=== PATIENT | male | born 1965 | race Caucasian/White ===

== ENCOUNTER → 2017-11-12 | Outpatient (CLI) | payer OTHER ==
--- NOTE | 2017-11-12 17:37 | DIAGNOSTIC IMAGING REPORT ---
MRI OF THE CERVICAL SPINE WITHOUT IV CONTRAST CLINICAL HISTORY: Gait abnormality. Neck pain. History of previous cervical fusion. COMPARISON STUDY: No priors. TECHNIQUE: MRI of the cervical spine is performed utilizing various T1 and T2-weighted sequences in the axial and sagittal planes. IV contrast was not administered for this examination. FINDINGS: Cervical spine: Vertebral body height and alignment are maintained throughout the cervical spine. Marrow signal intensity is heterogeneous. There is straightening of cervical lordosis. There is near-complete bony fusion of C4 and C5. The spinous processes appear intact. The atlantodental articulation appears maintained. Significant endplate edema is seen at C5-C6. Intervertebral discs: There is loss of the C4-C5 disc space secondary to fusion at this level. Disc desiccation is seen at the remaining cervical levels. Loss of height is moderate at C3-C4, C5-C6, and C6-C7. Spinal cord: There is extensive signal abnormality identified throughout the cervical cord. There is a 1.5 cm T2 hyperintense lesion identified at C2-C3 on sagittal image #8. A lesion at the C2 level on image #9 measures 1.3 cm. There is extensive signal abnormality seen from C3 to C5, seen on sagittal image #9. This measures at least 2.7 cm in length. Additional foci of abnormal signal are identified in the lower cervical and upper thoracic cord. There is thinning of the cervical cord at the C5-C6 level. C2-C3: Unremarkable. C3-C4: A posterior disc osteophyte complex abuts the ventral cord. This causes moderate to severe right and mild left neural foraminal stenosis. C4-C5: Unremarkable. C5-C6: A posterior disc osteophyte complex eccentric to the left minimally effaces the ventral cord. In conjunction with uncovertebral and facet arthropathy, this causes severe left and moderate to severe right neural foraminal stenosis. C6-C7: A tiny posterior disc osteophyte complex effaces the ventral subarachnoid space. Uncovertebral and facet arthropathy causes moderate to severe left and minimal right neural foraminal stenosis. C7-T1: Facet arthropathy is of no consequence. The central canal and neural foramina are widely patent. Soft tissues: The prevertebral and paraspinous soft tissues are within normal limits. Brain parenchyma: Partially imaged brain parenchyma at the skull base is normal as visualized. IMPRESSION: 1. There is extensive signal abnormality seen throughout the cervical cord and partially visualized in the upper thoracic cord. Although not definitive, the appearance and extent of the lesions suggest a demyelinating process such as multiple sclerosis. Other etiologies are considered less likely. Correlation with the patient's clinical findings, medical history, and any prior outside imaging studies will be essential. 2. There are postoperative changes from C4 to C5 spinal fusion. 3. Diffuse degenerative disc disease with significant endplate edema noted at C5-C6. 4. Multilevel cervical spondylosis as above. See discussion for level by level analysis. Dictated: 11/12/2017 5:08 PM Transcribed: 11/12/2017 5:37 PM [email or web address] Electronically signed by: Rudy Clayton M.D. 11/12/2017 5:43 PM Dictated Date/Time: 11/12/2017 5:08 PM
== END | disposition home or self-care (01) ==
LOC: C.MRIBC 15:22
PROVIDERS: ATTEND Orthopaedic Surgery Orthopaedic Surgery of the Spine
DX: R26.9 Unspecified abnormalities of gait and mobility (principal); M47.892 Other spondylosis, cervical region; M50.322 Other cervical disc degeneration at C5-C6 level

== ENCOUNTER 2020-07-01 13:31 | Observation (INO) ==
[2020-07-01] MEDS ORDERED: cefTRIAXone SODIUM 2,000 MG/70 ML BAG IV STA (14:15)
[2020-07-01] MEDS ORDERED: KETOROLAC TROMETHAMINE 15 MG/ML VIAL IV STA (14:18)
[2020-07-01] MEDS ORDERED: ACETAMINOPHEN 500 MG TAB PO STA (14:18)
--- NOTE | 2020-07-01 14:23 | Emergency Department Note ---
Impression & Plan Fever, Body aches, Headache, Acute urinary retention, Multiple sclerosis, Tick bite ED Provider Note NAME: LUIS SKINNER AGE: 54 SEX: M : 1965 ARRIVES VIA: Walk-In INFORMANT: [Patient] ED PROVIDER(S): [Rudy Toney MD] CHIEF COMPLAINT: Fever HISTORY OF PRESENT ILLNESS: The patient is a 54-year-old male who has had around 2 to 3 days of symptoms. He has body aches, chills, hot flashes, stiff joints, some nausea. He feels weak. His urine stream is weak. Patient has had no appetite. He has had a low-grade fever. He has a headache that is a 7/10. Patient states that he did pull 2-3 ticks off of his back last week. He has had Lyme disease before and is concerned he has it again. Patient does have MS, he states that he is weak typically with the MS but things have definitely worsened in the last 2 days. There has been no cough or congestion really. He has maybe had some slight nasal mucus production. He has not been short of breath. The patient denies any known coronavirus exposures. There have been no sick contacts at home. The patient has not noticed any rash. No diarrhea. No vomiting. REVIEW OF SYSTEMS: See HPI for pertinent positives and negatives. A total of ten systems were reviewed and were otherwise negative. PMHx/PSHx: See Below SOCIAL HISTORY: See Below. PHYSICAL EXAM: GENERAL: Patient is in no acute distress. HEENT: No acute trauma, normocephalic atraumatic, mucous membranes moist, no nasal congestion, no scleral icterus. No throat erythema or exudate. NECK: No stridor, no adenopathy, no meningismus, trachea is midline. LUNGS: Clear to auscultation bilaterally, no wheeze, no rhonchi, breath sounds equal. HEART: Without murmurs gallops or rubs, mildly tachycardic, regular rhythm. ABDOMEN: Soft, nontender, bowel sounds positive, no hernias, no peritonitis. EXTREMITIES: No cyanosis or edema, full range of motion of all the joints without pain or difficulty, no signs for acute trauma. NEUROLOGIC: Oriented x 3, no acute motor or sensory deficits, no focal weakness. SKIN: No rash, no jaundice, no diaphoresis. Back: The patient does have some healing lesions to the left thoracic back that may be consistent with a previously embedded tick. There is no ECM rash. DIFFERENTIAL DIAGNOSIS: Sepsis, UTI, pneumonia, metabolic, electrolyte abnormalities, influenza, asael navirus, Lyme disease, cardiac sources, intracerebral event, MS flare, toxicologic, neurologic, as well as other pathologies. EMERGENCY DEPARTMENT COURSE/PROCEDURES: ECG: Indication was tachycardia. The ECG shows a normal sinus rhythm with a rate of 87. There is no ST elevation, no PVCs. The QTc is 394. Continuous Cardiac Monitoring: An order was placed for continuous cardiac monitoring. The monitor shows a rate of 75 with normal sinus rhythm. MEDICAL DECISION MAKING: There is no leukocytosis, in fact, the white count is slightly low. There is a normal hemoglobin. There is a normal platelet count. No coagulopathy. No significant electrolyte abnormality or kidney failure. Lactic acid level is not elevated making sepsis less likely. There is no liver enzyme elevation. Procalcitonin level is not elevated. Urinalysis shows some ketones, no infection. Lyme disease testing was negative. Influenza testing was negative. Coronavirus testing was negative. Anaplasmosis testing is pending. ECG showed a sinus rhythm, no acute ischemia, no dysrhythmia. Cardiac enzyme testing x1 is not consistent with acute cardiac injury. A chest film was done, there was no pneumonia or CHF. KUB shows some mild constipation. The patient was unable to urinate here in the ED. He felt like he had to urinate. A Saul catheter was placed, over 600 cc of urine drained. Patient was given 2 L of saline for hydration. He received IV Toradol and oral Tylenol. He was given IV ceftriaxone and oral doxycycline. He was eventually given 2 Senokot tablets orally. The patient is having an MS flare. He is febrile. The source for the fever is unclear but I am suspicious for Lyme disease or anaplasmosis given his recent tick bites. I do think a hospital stay would be warranted especially given his history of MS. His MS is flaring and may be responsible for why he cannot urinate. Prostatitis also must be considered. I spoke to the patient, I talked with case management. The on-call hospitalist has been consulted. 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 History of cervical discectomy Family History Denies family history of Ovarian cancer Prostate cancer Myocardial infarction Breast cancer Colorectal cancer Social History Smoking Status: Former smoker Hx Alcohol Use: Yes Hx Substance Use: No Preferred Language: Kinyarwanda Beliefs That Will Affect Care: None Current Living Situation: Alone Feels Safe at Home: Yes Assistive Devices: Cane Allergies Allergies Allergy/AdvReac Type Severity Reaction Status Date / Time No Known Allergies Allergy Unverified 06/17/19 09:35 Home Meds Home Medications Medication Instructions Recorded Confirmed gabapentin 300 mg capsule 300 mg PO TID #30 cap 06/16/19 07/01/20 meloxicam 15 mg PO DAILY 07/01/20 07/01/20 tizanidine 2 mg PO QPM 07/01/20 07/01/20 Results & Data (ED) Vital Signs Vital Signs - 24 hr 07/01/20 13:39 07/01/20 14:16 07/01/20 14:45 Temperature 38.5 C H Temperature Source Oral Pulse Rate 118 H 118 H Pulse Rate [Left] Pulse Rate from SpO2 Sensor Pulse Rhythm Regular Regular Pulse Strength Normal Respiratory Rate 20 20 20 Respiratory Effort / Characteristics Non-Labored Spontaneous Non-Labored Spontaneous Respiratory Depth Normal Respiratory Pattern Regular Blood Pressure 111/77 Blood Pressure [Right Arm] Blood Pressure Mean 88 Blood Pressure Mean [Right Arm] Blood Pressure Position [Right Arm] Pulse Oximetry 97 97 97 Oxygen Delivery Method Room Air Room Air Room Air Sepsis Recent Fever Within 48 Hours Yes Sepsis New/Unexplained Change in Mental Status N/A Sepsis Action Taken by Nursing No Action Required 07/01/20 14:46 07/01/20 15:16 07/01/20 15:29 Temperature Temperature Source Pulse Rate 90 Pulse Rate [Left] Pulse Rate from SpO2 Sensor 88 Pulse Rhythm Pulse Strength Respiratory Rate 20 20 15 Respiratory Effort / Characteristics Non-Labored Spontaneous Non-Labored Spontaneous Respiratory Depth Respiratory Pattern Blood Pressure 124/79 Blood Pressure [Right Arm] Blood Pressure Mean 85 Blood Pressure Mean [Right Arm] Blood Pressure Position [Right Arm] Pulse Oximetry 97 97 96 Oxygen Delivery Method Room Air Room Air Sepsis Recent Fever Within 48 Hours Sepsis New/Unexplained Change in Mental Status Sepsis Action Taken by Nursing 07/01/20 15:30 07/01/20 15:45 07/01/20 16:00 Temperature Temperature Source Pulse Rate 89 88 82 Pulse Rate [Left] Pulse Rate from SpO2 Sensor 87 87 81 Pulse Rhythm Pulse Strength Respiratory Rate 16 17 15 Respiratory Effort / Characteristics Non-Labored Spontaneous Respiratory Depth Respiratory Pattern Blood Pressure 148/91 H 162/126 H 139/91 Blood Pressure [Right Arm] Blood Pressure Mean 101 136 108 Blood Pressure Mean [Right Arm] Blood Pressure Position [Right Arm] Pulse Oximetry 98 97 97 Oxygen Delivery Method Room Air Sepsis Recent Fever Within 48 Hours Sepsis New/Unexplained Change in Mental Status Sepsis Action Taken by Nursing 07/01/20 16:15 07/01/20 16:30 07/01/20 17:39 Temperature Temperature Source Pulse Rate 77 81 75 Pulse Rate [Left] Pulse Rate from SpO2 Sensor 77 82 76 Pulse Rhythm Pulse Strength Respiratory Rate 13 15 16 Respiratory Effort / Characteristics Respiratory Depth Respiratory Pattern Blood Pressure 123/78 122/79 132/85 Blood Pressure [Right Arm] Blood Pressure Mean 89 86 90 Blood Pressure Mean [Right Arm] Blood Pressure Position [Right Arm] Pulse Oximetry 97 96 96 Oxygen Delivery Method Sepsis Recent Fever Within 48 Hours Sepsis New/Unexplained Change in Mental Status Sepsis Action Taken by Nursing 07/01/20 17:45 07/01/20 18:00 Temperature Temperature Source Pulse Rate Pulse Rate [Left] 75 Pulse Rate from SpO2 Sensor Pulse Rhythm Pulse Strength Respiratory Rate 16 16 Respiratory Effort / Characteristics Non-Labored Spontaneous Non-Labored Spontaneous Respiratory Depth Normal Respiratory Pattern Blood Pressure 123/90 Blood Pressure [Right Arm] 123/90 Blood Pressure Mean 103 Blood Pressure Mean [Right Arm] 101 Blood Pressure Position [Right Arm] Lying Pulse Oximetry 97 97 Oxygen Delivery Method Room Air Room Air Sepsis Recent Fever Within 48 Hours Sepsis New/Unexplained Change in Mental Status Sepsis Action Taken by Group Home Medications Current Medication List: was personally reviewed by me Laboratory Data Attestation: I reviewed the patient's lab results. Result diagrams: 07/01/20 15:10 07/01/20 15:10 Lab Results 07/01/20 07/01/20 07/01/20 Range/Units 15:10 15:10 15:10 WBC 4.74 L (4.8-10.8) K/uL RBC 4.93 (4.7-6.1) M/uL Hgb 16.3 (14.0-18.0) g/dL Hct 45.9 (42-52) % MCV 93.1 (80-100) fL MCH 33.1 (25-34) pg MCHC 35.5 (32-36) g/dL RDW Std Deviation 44.7 (36.4-46.3) fL RDW Coeff of Dee 13.1 (11.5-14.5) % Plt Count 170 (130-400) K/uL MPV 9.7 (7.4-10.4) fL Immature Gran % (Auto) 0.2 % Neut % (Auto) 80.7 % Lymph % (Auto) 14.3 % Irwin % (Auto) 4.6 % Eos % (Auto) 0.0 % Baso % (Auto) 0.2 % Neut # (Auto) 3.82 (1.4-6.5) K/uL Lymph # (Auto) 0.68 L (1.2-3.4) K/uL Irwin # (Auto) 0.22 (0.11-0.59) K/uL Eos # (Auto) 0.00 (0-0.5) K/uL Baso # (Auto) 0.01 (0-0.2) K/uL Immature Gran # (Auto) 0.01 (0.00-0.02) K/uL PT 10.8 (9.0-12.0) Seconds INR 1.0 (0.9-1.1) APTT 40.3 H (21.0-31.0) Seconds PTT Ratio 1.4 Sodium (136-145) mmol/L Potassium (3.5-5.1) mmol/L Chloride (98-107) mmol/L Carbon Dioxide (21-32) mmol/L Anion Gap (3-11) BUN (7-18) mg/dl Creatinine (0.6-1.4) mg/dl Est Cr Clr Drug Dosing ml/min Est GFR ( Amer) Est GFR (Non-Af Amer) BUN/Creatinine Ratio (10-20) Glucose (70-99) mg/dl Lactate (0.4-2.0) mmol/L Calcium (8.5-10.1) mg/dl Magnesium (1.8-2.4) mg/dl Total Bilirubin (0.2-1) mg/dl AST (15-37) U/L ALT (12-78) U/L Alkaline Phosphatase (45-117) U/L Troponin I (0-0.045) ng/ml Total Protein (6.4-8.2) gm/dl Albumin (3.4-5.0) gm/dl Globulin (2.5-4.0) gm/dl Albumin/Globulin Ratio (0.9-2) Procalcitonin 0.46 (0-0.5) ng/ml Urine Color Urine Appearance (Clear) Urine pH (4.5-7.5) Ur Specific Kirby (1.000-1.030) Urine Protein (Negative) Urine Glucose (UA) (Negative) Urine Ketones (Negative) Urine Blood (Negative) Urine Nitrite (Negative) Urine Bilirubin (Negative) Urine Urobilinogen (Negative) Ur Leukocyte Esterase (Negative) Urine WBC (Auto) (0-5) /hpf Urine RBC (Auto) (0-4) /hpf U Hyaline Cast (Auto) (0-5) /lpf U Epithel Cells (Auto) (0-5) /lpf Urine Bacteria (Auto) (Negative) Lyme Disease IgG Ab Negative (Negative) Lyme Disease IgM Ab Negative (Negative) COVID-19 Eval Order COVID-19 PCR (Negative) Influ A Molecular Assay (Negative) Influ B Molecular Assay (Negative) 07/01/20 07/01/20 07/01/20 Range/Units 15:10 15:10 15:12 WBC (4.8-10.8) K/uL RBC (4.7-6.1) M/uL Hgb (14.0-18.0) g/dL Hct (42-52) % MCV (80-100) fL MCH (25-34) pg MCHC (32-36) g/dL RDW Std Deviation (36.4-46.3) fL RDW Coeff of Dee (11.5-14.5) % Plt Count (130-400) K/uL MPV (7.4-10.4) fL Immature Gran % (Auto) % Neut % (Auto) % Lymph % (Auto) % Irwin % (Auto) % Eos % (Auto) % Baso % (Auto) % Neut # (Auto) (1.4-6.5) K/uL Lymph # (Auto) (1.2-3.4) K/uL Irwin # (Auto) (0.11-0.59) K/uL Eos # (Auto) (0-0.5) K/uL Baso # (Auto) (0-0.2) K/uL Immature Gran # (Auto) (0.00-0.02) K/uL PT (9.0-12.0) Seconds INR (0.9-1.1) APTT (21.0-31.0) Seconds PTT Ratio Sodium 134 L (136-145) mmol/L Potassium 3.9 (3.5-5.1) mmol/L Chloride 102 (98-107) mmol/L Carbon Dioxide 24 (21-32) mmol/L Anion Gap 8.0 (3-11) BUN 16 (7-18) mg/dl Creatinine 0.97 (0.6-1.4) mg/dl Est Cr Clr Drug Dosing 98.0 ml/min Est GFR ( Amer) 102.9 Est GFR (Non-Af Amer) 88.8 BUN/Creatinine Ratio 16.7 (10-20) Glucose 102 H (70-99) mg/dl Lactate 1.0 (0.4-2.0) mmol/L Calcium 8.7 (8.5-10.1) mg/dl Magnesium 2.0 (1.8-2.4) mg/dl Total Bilirubin 0.3 (0.2-1) mg/dl AST 35 (15-37) U/L ALT 42 (12-78) U/L Alkaline Phosphatase 79 (45-117) U/L Troponin I < 0.015 (0-0.045) ng/ml Total Protein 7.9 (6.4-8.2) gm/dl Albumin 3.8 (3.4-5.0) gm/dl Globulin 4.1 H (2.5-4.0) gm/dl Albumin/Globulin Ratio 0.9 (0.9-2) Procalcitonin (0-0.5) ng/ml Urine Color Urine Appearance (Clear) Urine pH (4.5-7.5) Ur Specific Kirby (1.000-1.030) Urine Protein (Negative) Urine Glucose (UA) (Negative) Urine Ketones (Negative) Urine Blood (Negative) Urine Nitrite (Negative) Urine Bilirubin (Negative) Urine Urobilinogen (Negative) Ur Leukocyte Esterase (Negative) Urine WBC (Auto) (0-5) /hpf Urine RBC (Auto) (0-4) /hpf U Hyaline Cast (Auto) (0-5) /lpf U Epithel Cells (Auto) (0-5) /lpf Urine Bacteria (Auto) (Negative) Lyme Disease IgG Ab (Negative) Lyme Disease IgM Ab (Negative) COVID-19 Eval Order COVID-19 PCR (Negative) Influ A Molecular Assay Negative (Negative) Influ B Molecular Assay Negative (Negative) 07/01/20 07/01/20 07/01/20 Range/Units 15:12 15:12 17:40 WBC (4.8-10.8) K/uL RBC (4.7-6.1) M/uL Hgb (14.0-18.0) g/dL Hct (42-52) % MCV (80-100) fL MCH (25-34) pg MCHC (32-36) g/dL RDW Std Deviation (36.4-46.3) fL RDW Coeff of Dee (11.5-14.5) % Plt Count (130-400) K/uL MPV (7.4-10.4) fL Immature Gran % (Auto) % Neut % (Auto) % Lymph % (Auto) % Irwin % (Auto) % Eos % (Auto) % Baso % (Auto) % Neut # (Auto) (1.4-6.5) K/uL Lymph # (Auto) (1.2-3.4) K/uL Irwin # (Auto) (0.11-0.59) K/uL Eos # (Auto) (0-0.5) K/uL Baso # (Auto) (0-0.2) K/uL Immature Gran # (Auto) (0.00-0.02) K/uL PT (9.0-12.0) Seconds INR (0.9-1.1) APTT (21.0-31.0) Seconds PTT Ratio Sodium (136-145) mmol/L Potassium (3.5-5.1) mmol/L Chloride (98-107) mmol/L Carbon Dioxide (21-32) mmol/L Anion Gap (3-11) BUN (7-18) mg/dl Creatinine (0.6-1.4) mg/dl Est Cr Clr Drug Dosing ml/min Est GFR ( Amer) Est GFR (Non-Af Amer) BUN/Creatinine Ratio (10-20) Glucose (70-99) mg/dl Lactate (0.4-2.0) mmol/L Calcium (8.5-10.1) mg/dl Magnesium (1.8-2.4) mg/dl Total Bilirubin (0.2-1) mg/dl AST (15-37) U/L ALT (12-78) U/L Alkaline Phosphatase (45-117) U/L Troponin I (0-0.045) ng/ml Total Protein (6.4-8.2) gm/dl Albumin (3.4-5.0) gm/dl Globulin (2.5-4.0) gm/dl Albumin/Globulin Ratio (0.9-2) Procalcitonin (0-0.5) ng/ml Urine Color Yellow Urine Appearance Clear (Clear) Urine pH 5.5 (4.5-7.5) Ur Specific Kirby 1.023 (1.000-1.030) Urine Protein 1+ H (Negative) Urine Glucose (UA) Negative (Negative) Urine Ketones 2+ H (Negative) Urine Blood Negative (Negative) Urine Nitrite Negative (Negative) Urine Bilirubin Negative (Negative) Urine Urobilinogen Negative (Negative) Ur Leukocyte Esterase Negative (Negative) Urine WBC (Auto) 1-5 (0-5) /hpf Urine RBC (Auto) 0-4 (0-4) /hpf U Hyaline Cast (Auto) 1-5 (0-5) /lpf U Epithel Cells (Auto) 0-5 (0-5) /lpf Urine Bacteria (Auto) Negative (Negative) Lyme Disease IgG Ab (Negative) Lyme Disease IgM Ab (Negative) COVID-19 Eval Order Covid19 Done at [facility] COVID-19 PCR NEGATIVE (Negative) Influ A Molecular Assay (Negative) Influ B Molecular Assay (Negative) Administered Medications Discontinued Medications Acetaminophen (Acetaminophen 500 Mg Tab) 1,000 mg PO NOW STA Stop: 07/01/20 14:19 Last Admin: 07/01/20 15:21 Dose: 1,000 mg Documented by: [id number] Doxycycline Hyclate (Doxycycline Hyclate 100 Mg Cap) 100 mg PO NOW STA Stop: 07/01/20 15:52 Last Admin: 07/01/20 18:44 Dose: 100 mg Documented by: [id number] Doxycycline Hyclate (Doxycycline Hyclate 100 Mg Cap) Confirm Administered Dose 100 mg PO .STK-MED ONE Stop: 07/01/20 18:43 Last Admin: 07/01/20 18:44 Dose: Not Given Documented by: [id number] Sodium Chloride (Nss 1000ml) 1,000 mls @ 999 mls/hr IV .Q1H1M THUY Stop: 07/01/20 16:15 Last Infusion: 07/01/20 16:38 Dose: 0 mls/hr Documented by: [id number] Admin: 07/01/20 15:20 Dose: 999 mls/hr Documented by: [id number] Sodium Chloride (Nss 1000ml) 1,000 mls @ 999 mls/hr IV .Q1H1M THUY Stop: 07/01/20 15:16 Last Infusion: 07/01/20 16:38 Dose: 0 mls/hr Documented by: [id number] Admin: 07/01/20 15:21 Dose: Not Given Documented by: [id number] Admin: 07/01/20 15:20 Dose: 999 mls/hr Documented by: [id number] Ceftriaxone Sodium (Rocephin) 2,000 mg in 70 mls @ 140 mls/hr IV NOW STA Stop: 07/01/20 14:44 Last Infusion: 07/01/20 16:38 Dose: 0 mls/hr Documented by: [id number] Admin: 07/01/20 15:26 Dose: 140 mls/hr Documented by: [id number] Ketorolac Tromethamine (Ketorolac Tromethamine 15 Mg/Ml Vial) 15 mg IV NOW STA Stop: 07/01/20 14:19 Last Admin: 07/01/20 15:21 Dose: 15 mg Documented by: [id number] Imaging Data Radiologist's Impression: XR chest 1V portable HISTORY: 54 years-old Male SEPSIS acute sepsis COMPARISON: Chest CT 01/28/2019 TECHNIQUE: Portable AP view of the chest FINDINGS: Cardiomediastinal and hilar silhouettes are within normal limits. No pneumothorax, pleural effusion, airspace consolidation or overt pulmonary edema. Mild emphysema redemonstrated. Bones of the chest appear grossly intact. IMPRESSION: No acute process. KUB HISTORY: Acute generalized abdominal pain with constipation poss constipation COMPARISON: None. FINDINGS: Gas pattern is nonobstructive. Mild fecal retention. Shadows are obscured by bowel gas. No urolith identified. No pneumoperitoneum or pneumatosis. Degenerative changes of the spine without acute fracture identified. IMPRESSION: 1. Nonobstructive bowel gas pattern. 2. Mild fecal retention. Discharge Plan Visit Data Chief Complaint: Illness Stated Complaint: STIFF BACK,LEG,HX MS ED Provider: Rudy Toney Discharge Problem: Fever, Body aches, Headache, Acute urinary retention, Multiple sclerosis, Tick bite Patient Disposition: Admitted As Inpatient Condition: Fair Forms Stand Alone Forms: [facility] Prescriptions Prescriptions: No Action gabapentin 300 mg capsule 300 mg PO TID Qty: 30 RF: 0 tizanidine 2 mg tablet 2 mg PO QPM RF: 0 meloxicam 15 mg tablet 15 mg PO DAILY RF: 0 Referrals Referrals: Deepak Vargas MD [Primary Care Provider] - Discharge Problem: Fever Qualifiers: Fever type: unspecified Qualified Code(s): R50.9 - Fever, unspecified Headache Qualifiers: Headache type: unspecified Headache chronicity pattern: acute headache Intractability: not intractable Qualified Code(s): R51.9 - Headache, unspecified Tick bite Qualifiers: Encounter type: initial encounter Qualified Code(s): W57.XXXA - Bitten or stung by nonvenomous insect and other nonvenomous arthropods, initial encounter
--- NOTE | 2020-07-01 14:44 | XRay Report ---
XR chest 1V portable HISTORY: 54 years-old Male SEPSIS acute sepsis COMPARISON: Chest CT 01/28/2019 TECHNIQUE: Portable AP view of the chest FINDINGS: Cardiomediastinal and hilar silhouettes are within normal limits. No pneumothorax, pleural effusion, airspace consolidation or overt pulmonary edema. Mild emphysema redemonstrated. Bones of the chest ap pear grossly intact. IMPRESSION: No acute process. ACT 112: Negative or not required by law. The above report was generated using voice recognition software. It may contain grammatical, syntax o r spelling errors. Electronically signed by: Flaquito Brock M.D. 07/01/2020 2:43 PM
[2020-07-01] MEDS ORDERED: SODIUM CHLORIDE 0.9% 1000ML 1,000 ML IV SCH (15:16)
[2020-07-01] MEDS: SODIUM CHLORIDE 0.9% 1000ML 1,000 ML IV SCH ×2 (15:20→15:21)
[2020-07-01 15:27] LABS: Basophils # (auto) 0.01 K/uL (0-0.2); Basophils % (auto) 0.2 %; Hematocrit (blood only) 45.9 % (42-52); Hemoglobin 16.3 g/dL (14.0-18.0); Immature Granulocytes # (auto) 0.01 K/uL (0.00-0.02); Immature Granulocytes % (auto) 0.2 %; Lymphocytes # (auto) 0.68 K/uL (1.2-3.4); Lymphocytes % (auto) 14.3 %; Mean Corpuscular Hemoglobin 33.1 pg (25-34); Mean Corpuscular Hgb Conc 35.5 g/dL (32-36); Mean Corpuscular Volume 93.1 fL (80-100); Mean Platelet Volume 9.7 fL (7.4-10.4); Monocytes # (auto) 0.22 K/uL (0.11-0.59); Monocytes % (auto) 4.6 %; Neutrophils # (auto) 3.82 K/uL (1.4-6.5); Neutrophils % (auto) 80.7 %; Platelet Count 170 K/uL (130-400); RDW Coefficient of Variation 13.1 % (11.5-14.5); RDW Standard Deviation 44.7 fL (36.4-46.3); Red Blood Count 4.93 M/uL (4.7-6.1); White Blood Count 4.74 K/uL (4.8-10.8)
[2020-07-01 15:38] LABS: Partial Thromboplastin Ratio 1.4; Partial Thromboplastin Time 40.3 Seconds (21.0-31.0); Prothrombin Time 10.8 Seconds (9.0-12.0)
[2020-07-01 15:45] LABS: Alanine Aminotransferase 42 U/L (12-78); Albumin Level 3.8 gm/dl (3.4-5.0); Aspartate Aminotransferase 35 U/L (15-37); BUN Creatinine Ratio 16.7 (10-20); Blood Urea Nitrogen 16 mg/dl (7-18); Calcium 8.7 mg/dl (8.5-10.1); Carbon Dioxide 24 mmol/L (21-32); Chloride 102 mmol/L (98-107); Est GFR (African American) 102.9; Est GFR (Non-African American) 88.8; Glucose 102 mg/dl (70-99); Potassium 3.9 mmol/L (3.5-5.1); Sodium 134 mmol/L (136-145)
[2020-07-01 15:49] LABS: Albumin Globulin Ratio 0.9 (0.9-2); Alkaline Phosphatase 79 U/L (45-117); Bilirubin,Total 0.3 mg/dl (0.2-1); Globulin 4.1 gm/dl (2.5-4.0); Total Protein 7.9 gm/dl (6.4-8.2); Troponin I < 0.015 ng/ml (0-0.045)
[2020-07-01] MEDS ORDERED: DOXYCYCLINE HYCLATE 100 MG CAP PO STA (15:51)
[2020-07-01 16:02] LABS: Influenza A virus by PCR Negative (Negative); Influenza B virus by PCR Negative (Negative)
[2020-07-01 16:14] LABS: Procalcitonin 0.46 ng/ml (0-0.5)
[2020-07-01 16:24] LABS: Lyme Ab IgG w/WB Rflx Negative (Negative); Lyme Ab IgM w/WB Rflx Negative (Negative)
[2020-07-01 17:59] LABS: Appearance Urine Clear (Clear); Bacteria Urine Automated Negative (Negative); Bilirubin Urine Negative (Negative); Blood Urine Negative (Negative); Color Urine Yellow; Epithelial Cell Urine Auto 0-5 /lpf (0-5); Glucose Urine UA Negative (Negative); Ketones Urine 2+ (Negative); Leukocyte Esterase Urine Negative (Negative); Nitrite Urine Negative (Negative); Protein Urine 1+ (Negative); RBC Urine Automated 0-4 /hpf (0-4); Specific Gravity Urine 1.023 (1.000-1.030); Urobilinogen Urine Negative (Negative); pH Urine 5.5 (4.5-7.5)
--- NOTE | 2020-07-01 18:35 | XRay Report ---
KUB HISTORY: Acute generalized abdominal pain with constipation poss constipation COMPARISON: None. FINDINGS: Gas pattern is nonobstructive. Mild fecal retention. Shadows are obscured by bowel gas. No urolith identified. No pneumoperitoneum or pneumatosis. Degener ative changes of the spine without acute fracture identified. IMPRESSION: 1. Nonobstructive bowel gas pattern. 2. Mild fecal retention. ACT 112: Negative or not required by law. The above report was generated using voice recognition software. It may contain grammatical, syntax o r spelling errors. Electronically signed by: Flaquito Brock M.D. 07/01/2020 6:34 PM
[2020-07-01] MEDS ORDERED: DOXYCYCLINE HYCLATE 100 MG CAP PO ONE (18:42)
[2020-07-01] MEDS ORDERED: DOCUSATE SODIUM/SENNA 50/8.6MG TAB PO STA (18:49)
[2020-07-01] MEDS ORDERED: ACETAMINOPHEN 325 MG TAB PO PRN (21:42)
[2020-07-01] MEDS ORDERED: POLYETHYLENE (MIRALAX) 17 GM PACK PO PRN (21:42)
[2020-07-01] MEDS ORDERED: ONDANSETRON INJ 2 MG/ML 2 ML VIAL IV PRN (21:42)
[2020-07-01 21:56] LABS: Adenovirus PCR Not Detected (NotDetected); Bordetella parapertussis PCR Not Detected (NotDetected); Bordetella pertussis PCR Not Detected (NotDetected); Chlamydia pneumoniae PCR Not Detected (NotDetected); Coronavirus 229E PCR Not Detected (NotDetected); Coronavirus CoV-2 (COVID19)PCR Not Detected (NotDetected); Coronavirus HKU1 PCR Not Detected (NotDetected); Coronavirus NL63 PCR Not Detected (NotDetected); Coronavirus OC43PCR Not Detected (NotDetected); Human Metapneumovirus PCR Not Detected (NotDetected); Influenza A PCR Not Detected (NotDetected); Influenza B PCR Not Detected (NotDetected); Mycoplasma pneumoniae PCR Not Detected (NotDetected); Parainfluenza Virus 1 PCR Not Detected (NotDetected); Parainfluenza Virus 2 PCR Not Detected (NotDetected); Parainfluenza Virus 3 PCR Not Detected (NotDetected); Parainfluenza Virus 4 PCR Not Detected (NotDetected); Respiratory Syncytial VirusPCR Not Detected (NotDetected); Rhinovirus/Enterovirus PCR Not Detected (NotDetected)
[2020-07-01] MEDS ORDERED: INFLUENZA VIRUS QUAD VACCINE 0.5 ML SYR IM ONE (22:38)
[2020-07-01] MEDS ORDERED: INFLUENZA ADMINISTRATION CHARGE ONE (22:38)
[2020-07-01] MEDS: methylPREDNISolone 1,000 MG in DEXTROSE 5% 250 ML IV SCH (22:44)
[2020-07-01] MEDS: GABAPENTIN 300 MG CAP PO SCH (22:44)
[2020-07-01] MEDS: tiZANidine HCL 4 MG TABLET PO SCH (22:44)
--- NOTE | 2020-07-02 00:40 | History and Physical Report ---
DATE OF ADMISSION: 07/01/2020 CHIEF COMPLAINT: Flu-like illness and stiffness in the lower extremities. HISTORY OF PRESENT ILLNESS: This is a 54-year-old male with past medical history significant for atrophic dermatitis, history of primary progressive multiple sclerosis, spinal stenosis of lumbar region, presents with ongoing flu-like symptoms for the last 3 days. The patient says he was feeling body aches, chills and hot flashes and cold flashes, some nausea, some headache for last 2-3 days and has low-grade fever, last night, he noticed that he has stiffness in his legs and have some difficulty ambulation and also difficulty micturating, he could not micturate at all today for which he came to the ER. In the ER, Saul catheter was placed, 600 mL of urine was drained. Patient also says about 1 week ago, he had a 2-3 tick bites in his back, which he took it off. He thinks they were there for 1 or 2 days. He lives in the [facility] and he says he had tick bites in the past. Currently he has temperature 38.5. In the ER, WBC was 4.7. Rest of labs are okay. Urine was negative. Lyme screen was negative. Anaplasma smear was negative. Influenza A and B was negative and COVID-19 PCR was negative in the ER, currently BioFire is ordered, which is pending. The patient says he is not exposed to any COVID patient and not exposed to any people, he lives alone at home. He has mild dizziness, no blurred vision, no double vision, no earache, no runny nose, no sore throat, no dysphagia, no loss of sense of smell or taste. No cough, no chest pain, no shortness of breath. Slightly nauseous. No abdominal pain, no vomiting, somewhat constipated, has some difficulty micturating since last night. No swelling in the legs, no rash. He says somewhat decreased sensation in lower extremities. He follows with [facility] and as per the [facility] notes in his 20s he was paralyzed in whole right side of the body. Thought it could be from the Lyme disease and after treating with antibiotics, his symptoms improved and MRI of the brain at that time was nonspecific and LP was negative and in his 30s again had recurrent episode slightly worse, right leg and right arm did not move, which lasted for several months, attributed to C-spine lesion, had fusion by neurosurgery and was doing well after surgery. In 2017 again he had trouble lifting the leg and walking, had some back issues as well. At that time epidural injection has helped somewhat but was also considered to be from his back issues or lyme disease. Again evaluated in 2019 at [facility], finally after several workups, it was thought to be high suspicion for PPMS, and was started on ocrelizumab in February 2019. The patient says last dose of his IV ocrelizumab for his MS was given 1 month ago. He recently about a week ago, he also had epidural shot for his chronic back pains and that seemed to help, but again the symptoms of stiffness started last night after having this illness. Currently resting comfortably and hemodynamically stable. ALLERGIES: No known drug allergies. PAST MEDICAL HISTORY: As mentioned above. PAST SURGICAL HISTORY: Lumbar spine epidural injection several times, cervical laminectomy. MEDICATIONS: The patient is on gabapentin 300 mg p.o. t.i.d., Meloxicam 50 mg p.o. daily, tizanidine 2 mg p.o. q.p.m. and ocrelizumab IV every 6 months. FAMILY HISTORY: Significant for father had MA. Sister has MA. SOCIAL HISTORY: Lives alone. Former smoker, quit 2 years ago, smoked 1/2 pack a day. Alcohol occasional. No drug use. REVIEW OF SYMPTOMS: As per HPI. Rest of review of symptoms negative. PHYSICAL EXAMINATION: GENERAL: The patient is of moderate build, not in acute distress. VITAL SIGNS: Temperature 38.5, pulse 64, respiratory rate 14, blood pressure 135/90, oxygen 98% on room air. HEENT: No pallor, no icterus. Pupils equal. NECK: No JVD, no neck masses. CARDIOVASCULAR: S1, S2 heard, regular rate and rhythm, no murmur, no gallop. RESPIRATORY SYSTEM: Normal AP diameter. No accessory muscle use. No wheezing, no crackles. ABDOMEN: Soft, bowel sounds present, nontender. No distention. CENTRAL NERVOUS SYSTEM: Cranial nerves II-XII grossly intact. No facial droop seen. Speech clear. Power is about 3/5 in the right lower extremity and 5/5 in all other extremities and somewhat decreased sensation in lower extremities and position sense somewhat declined in the right foot region. EXTREMITIES: No edema, no erythema. LABORATORY DATA: WBC 4.7, hemoglobin 16.3, hematocrit 45.9, platelets 170. PT 10.8, INR 1, APTT 40.3. Sodium 134, potassium 3.9, chloride 102, bicarbonate 24, BUN 16, creatinine 0.9, serum glucose 102, lactate 1, calcium 8.7, magnesium 2, total bilirubin 0.3, AST 35, ALT 42, alkaline phosphatase 79, troponin I less than 0.015. Procalcitonin 0.46. Urinalysis negative. COVID-19 PCR negative. KUB x-ray shows mild fecal retention. IMAGING: Chest x-ray: No acute process seen. EKG: Normal sinus rhythm with rate of 87, no acute ST changes seen. ASSESSMENT AND PLAN: This is a 54-year-old male with history of multiple sclerosis, presents with fever and flu-like symptoms and increasing weakness and stiffness in lower extremities. 1. Mild flu-like symptoms. His flu and COVID-19 PCR are negative, could be viral syndrome, also could be Lyme disease. Recently he said about 1-2 weeks ago he had 3 tick bites on his back. Lyme screen and anaplasma negative, but may takes more than 2 weeks show positivity. Empirically started on IV doxycycline and we will also follow the cultures drawn in the ER and also we will check the BioFire and monitor in the medical floor. 2. Multiple sclerosis flare, possible from ongoing infection. Discussed with neurology. We will get MRI of the head and MRA of the neck with and without contrast and also start him on IV Solu-Medrol 1 gram daily for 3 days and after that taper as per neurology and we will also get Lumbar spine MRI scan as he recently had epidural shot and follow those results. PT and OT when stable. 3. Urinary retention. Possibly from multiple sclerosis flare. Consult urology for further recommendations. 4. Deep venous thrombosis prophylaxis, sequential compression devices. DISPOSITION: Closely monitor in medical floor. Expect discharge home and follow with family doctor. Level 1 full code. Social service to help with discharge planning. MTDD
[2020-07-02 05:57] LABS: Basophils # (auto) 0.01 K/uL (0-0.2); Basophils % (auto) 0.5 %; Hematocrit (blood only) 44.3 % (42-52); Hemoglobin 15.5 g/dL (14.0-18.0); Lymphocytes # (auto) 0.39 K/uL (1.2-3.4); Lymphocytes % (auto) 20.6 %; Mean Corpuscular Hemoglobin 32.5 pg (25-34); Mean Corpuscular Volume 92.9 fL (80-100); Mean Platelet Volume 9.7 fL (7.4-10.4); Monocytes # (auto) 0.06 K/uL (0.11-0.59); Monocytes % (auto) 3.2 %; Neutrophils # (auto) 1.43 K/uL (1.4-6.5); Neutrophils % (auto) 75.7 %; Platelet Count 153 K/uL (130-400); RDW Standard Deviation 44.1 fL (36.4-46.3); Red Blood Count 4.77 M/uL (4.7-6.1); White Blood Count 1.89 K/uL (4.8-10.8)
[2020-07-02 06:03] LABS: BUN Creatinine Ratio 16.8 (10-20); Calcium 8.5 mg/dl (8.5-10.1); Est GFR (African American) 114.2; Est GFR (Non-African American) 98.5; Magnesium 2.1 mg/dl (1.8-2.4); Potassium 4.1 mmol/L (3.5-5.1)
--- NOTE | 2020-07-02 07:47 | Electrocardiogram Report ---
Test Reason : Blood Pressure : / mmHG Vent. Rate : 087 BPM Atrial Rate : 087 BPM P-R Int : 160 ms QRS Dur : 098 ms QT Int : 328 ms P-R-T Axes : 077 081 050 degrees QTc Int : 394 ms Normal sinus rhythm Normal ECG No previous ECGs available Confirmed by Hany Butterfield ([id number]) on 07/02/2020 7:47:24 AM Referred By: ER Confirmed By:Hany Butterfield
[2020-07-02] MEDS: methylPREDNISolone 1,000 MG in DEXTROSE 5% 250 ML IV SCH (09:06)
[2020-07-02] MEDS: GABAPENTIN 300 MG CAP PO SCH ×3 (09:06→20:14)
[2020-07-02] MEDS: DOXYCYCLINE HYCLATE 100 MG in DEXTROSE 5% 100 ML IV SCH ×2 (09:15→20:15)
--- NOTE | 2020-07-02 10:45 | Urology Consultation ---
Date of Consultation July 02, 2020 Assessment & Plan (1) Acute urinary retention: 54 yo M with history of MS admitted with fever and flu-like symptoms. - Pt with acute urinary retention likely multifactorial - Maintain Saul catheter 7-10 days for bladder decompression and max drainage - Recommend trial of Tamsulosin, monitor for dizziness or hypotension - Normalize bowels - Recommend SATHISH for further evaluation, order placed - PSA on chart acceptable for age, recommend repeat PSA as outpatient if no recent screening - Plan to follow-up with our service outpatient for voiding trial History of Present Illness Reason for Consultation: Urinary retention Attending Physician: Anjali Mulligan MD History of Present Illness 54 yo M with history of MS admitted with fever and flu-like symptoms. Patient presented to [facility] ED on 07/01/20 with fever and flu-like symptoms. Temperature on arrival was 38.5F. Lab work: WBC 4.74, Creatinine 0.97. UA not suggestive of infection, no urine culture was collected. Blood cultures obtained. Pt reported unable to urinate that day. Saul catheter placed in ED with 600 mL output. Testing for influenza and COVID are negative. Patient admitted for further evaluation and management. Our service was consulted for urinary retention. Pt awake and sitting up in bed. Offers no complaints at this time. Overall feels better today. Denies abdominal, suprapubic or flank pain. No dysuria or hematuria. Tolerating Saul catheter. Saul catheter intact, patent, and draining clear yellow urine. No fever or chills. No nausea or vomiting. No bowel movement since arrival, attributes to less intake since illness. He reports difficulty/inability to urinate on demand since childhood. Denies bothersome LUTS at baseline. He noted some weaker stream for a few days prior to arrival. Nocturia 1x. Feels he empties bladder. No bothersome urgency or frequency. No medications for voiding. Diagnosed with MS in May 2019. PSA 0.802 in May 2018. Chart review: Afebrile overnight, Tmax 38.5 on 07/01 @1330 Creatinine 0.87 WBC 1.89 Hgb 15.5 On Doxycycline Blood culture pending KUB showed no urolithiasis No prior urology evaluations. Denies personal or family history of stones. No family history of prostate, bladder, or kidney cancer. No additional concerns today. 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 Preferred Language: Japanese Communication Ability: Effective Seal Extrusion Operator Required: No Beliefs That Will Affect Care: None Current Living Situation: Alone Other Information That Helps Us Care for You: No Feels Safe at Home: Yes Safety Concerns: Feels Safe At This Time Assistive Devices: Walker Assistive Devices Comment: Cane actually a walking stick. Review of Systems Review of Systems: All systems reviewed & are unremarkable except as noted in Subjective Constitutional: as per Subjective / HPI Gastrointestinal: as per Subjective / HPI Genitourinary: + as per Subjective / HPI Physical Exam Constitutional: well developed and well nourished; no acute distress and not ill appearing Eyes: no scleral abnormality Neck: normal visual inspection Respiratory: normal respiratory effort and able to speak in complete sentences; no respiratory distress and no labored breathing Cardiovascular: Extremities: no pedal edema Gastrointestinal (Abdomen): Inspection/Auscultation: abdomen normal to inspection; abdomen not distended Percussion/Palpation: abdomen soft; abdomen nontender and no guarding Musculoskeletal: Head/Neck/Chest: normocephalic and head atraumatic Skin: warm and dry Neurologic: moves all extremities and awake Psychiatric: A+Ox3, euthymic affect Genitourinary: no CVA tenderness Saul catheter intact, patent and draining clear yellow urine Results & Data ([facility]) Vital Signs (Past 12 Hours) Vital Signs Temp Pulse Resp BP Pulse Ox 07/02/20 07:15 36.6 C 74 18 153/88 H 97 PG Care Time/CCT Total # of Minutes Spent Total Time Spent with Patient: Total time spent is greater than 50% in coordination of care (as documented) at patient's floor/unit and/or counseling patient: Coding Level of Care Code 57130 Inpt Consult Level 4 Diagnoses Acute urinary retention R33.8
--- NOTE | 2020-07-02 12:38 | Hospitalist Progress Note ---
Date of Service July 02, 2020 Assessment & Plan (1) Fever: (2) Body aches: Fever and body aches Report of tick bites Continue empirical doxycycline Follow up outstanding Tick borne illness labs (3) Multiple sclerosis: MS flare Continue iv steroid Follow up neurology Follow up outstanding MRI ordered PT/OT eval (4) Acute urinary retention: Iraheta in situ Urology evaluation noted Tamsulosin ordered Monitor (5) DVT prophylaxis: SCD Admission and Anticipated Discharge Date Admission Date: July 01, 2020 Subjective Patient seen and examined Has not had any more fevers since last one (38.5) yesterday Denied chills Still has lower extremity weakness and numbness especially on left Denied any chest pain, SOB, cough, ALVAREZ Denied any diarrhea, abd pain, constipation, nausea, vomiting Has iraheta in situ. Does report occasional hesitancy and past history of retention which he attributed to nerves. Reports weak stream Physical Exam Constitutional: + well hydrated; no acute distress Eyes: PERRL, conjunctivae normal, anicteric sclerae ENMT: external ear and nose normal, oropharynx normal Respiratory: normal respiratory effort, lungs clear to auscultation Cardiovascular: RRR, no murmur, no edema Gastrointestinal (Abdomen): normal bowel sounds, soft, nontender, no hepatosplenomegaly Musculoskeletal: Power is 3+/5 in RLE and 5/5 in LLE Power is 5/5 in UE Neurologic: PERRL, EOMI, accommodation nl, no face palsy, no dysarthria Some deficits to fine touch in Rt feet Genitourinary: Iraheta in situ Results & Data Results & Data ([facility]) Vital Signs (Past 12 Hours) Vital Signs Temp Pulse Resp BP Pulse Ox 07/02/20 07:15 36.6 C 74 18 153/88 H 97 Laboratory Results Laboratory Results - last 24 hr 07/01/20 07/01/20 07/01/20 15:10 15:10 15:10 WBC 4.74 L RBC 4.93 Hgb 16.3 Hct 45.9 MCV 93.1 MCH 33.1 MCHC 35.5 RDW Std Deviation 44.7 RDW Coeff of Dee 13.1 Plt Count 170 MPV 9.7 Immature Gran % (Auto) 0.2 Neut % (Auto) 80.7 Lymph % (Auto) 14.3 [place] % (Auto) 4.6 Eos % (Auto) 0.0 Baso % (Auto) 0.2 Neut # (Auto) 3.82 Lymph # (Auto) 0.68 L [place] # (Auto) 0.22 Eos # (Auto) 0.00 Baso # (Auto) 0.01 Immature Gran # (Auto) 0.01 PT 10.8 INR 1.0 APTT 40.3 H PTT Ratio 1.4 Sodium Potassium Chloride Carbon Dioxide Anion Gap BUN Creatinine Est Cr Clr Drug Dosing Est GFR ( Amer) Est GFR (Non-Af Amer) BUN/Creatinine Ratio Glucose Lactate Calcium Magnesium Total Bilirubin AST ALT Alkaline Phosphatase Troponin I Total Protein Albumin Globulin Albumin/Globulin Ratio Procalcitonin 0.46 Urine Color Urine Appearance Urine pH Ur Specific [place] Urine Protein Urine Glucose (UA) Urine Ketones Urine Blood Urine Nitrite Urine Bilirubin Urine Urobilinogen Ur Leukocyte Esterase Urine WBC (Auto) Urine RBC (Auto) U Hyaline Cast (Auto) U Epithel Cells (Auto) Urine Bacteria (Auto) Adenovirus (PCR) Anaplasma Smear See Comment A. phagocytophilum DNA B. pertussis DNA (PCR) B.parapertussis DNA PCR Lyme Disease IgG Ab Negative Lyme Disease IgM Ab Negative C. pneumoniae DNA (PCR) Coronavirus OC43 (PCR) Coronavirus HKU1 (PCR) Coronavirus 229E (PCR) COVID-19 Eval Order COVID-19 PCR Coronavirus NL63 (PCR) Human Metapneumovir PCR Influenza Type A (PCR) Influ A Molecular Assay Influenza Type B (PCR) Influ B Molecular Assay M. pneumoniae (PCR) Parainfluenza 1 (PCR) Parainfluenza 2 (PCR) Parainfluenza 3 (PCR) Parainfluenza 4 (PCR) RSV (PCR) Entero/Rhino (PCR) 07/01/20 07/01/20 07/01/20 15:10 15:10 15:10 WBC RBC Hgb Hct MCV MCH MCHC RDW Std Deviation RDW Coeff of Dee Plt Count MPV Immature Gran % (Auto) Neut % (Auto) Lymph % (Auto) [place] % (Auto) Eos % (Auto) Baso % (Auto) Neut # (Auto) Lymph # (Auto) [place] # (Auto) Eos # (Auto) Baso # (Auto) Immature Gran # (Auto) PT INR APTT PTT Ratio Sodium 134 L Potassium 3.9 Chloride 102 Carbon Dioxide 24 Anion Gap 8.0 BUN 16 Creatinine 0.97 Est Cr Clr Drug Dosing 98.0 Est GFR ( Amer) 102.9 Est GFR (Non-Af Amer) 88.8 BUN/Creatinine Ratio 16.7 Glucose 102 H Lactate 1.0 Calcium 8.7 Magnesium 2.0 Total Bilirubin 0.3 AST 35 ALT 42 Alkaline Phosphatase 79 Troponin I < 0.015 Total Protein 7.9 Albumin 3.8 Globulin 4.1 H Albumin/Globulin Ratio 0.9 Procalcitonin Urine Color Urine Appearance Urine pH Ur Specific [place] Urine Protein Urine Glucose (UA) Urine Ketones Urine Blood Urine Nitrite Urine Bilirubin Urine Urobilinogen Ur Leukocyte Esterase Urine WBC (Auto) Urine RBC (Auto) U Hyaline Cast (Auto) U Epithel Cells (Auto) Urine Bacteria (Auto) Adenovirus (PCR) Anaplasma Smear A. phagocytophilum DNA Pending B. pertussis DNA (PCR) B.parapertussis DNA PCR Lyme Disease IgG Ab Lyme Disease IgM Ab C. pneumoniae DNA (PCR) Coronavirus OC43 (PCR) Coronavirus HKU1 (PCR) Coronavirus 229E (PCR) COVID-19 Eval Order COVID-19 PCR Coronavirus NL63 (PCR) Human Metapneumovir PCR Influenza Type A (PCR) Influ A Molecular Assay Influenza Type B (PCR) Influ B Molecular Assay M. pneumoniae (PCR) Parainfluenza 1 (PCR) Parainfluenza 2 (PCR) Parainfluenza 3 (PCR) Parainfluenza 4 (PCR) RSV (PCR) Entero/Rhino (PCR) 07/01/20 07/01/20 07/01/20 15:12 15:12 15:12 WBC RBC Hgb Hct MCV MCH MCHC RDW Std Deviation RDW Coeff of Dee Plt Count MPV Immature Gran % (Auto) Neut % (Auto) Lymph % (Auto) [place] % (Auto) Eos % (Auto) Baso % (Auto) Neut # (Auto) Lymph # (Auto) [place] # (Auto) Eos # (Auto) Baso # (Auto) Immature Gran # (Auto) PT INR APTT PTT Ratio Sodium Potassium Chloride Carbon Dioxide Anion Gap BUN Creatinine Est Cr Clr Drug Dosing Est GFR ( Amer) Est GFR (Non-Af Amer) BUN/Creatinine Ratio Glucose Lactate Calcium Magnesium Total Bilirubin AST ALT Alkaline Phosphatase Troponin I Total Protein Albumin Globulin Albumin/Globulin Ratio Procalcitonin Urine Color Urine Appearance Urine pH Ur Specific [place] Urine Protein Urine Glucose (UA) Urine Ketones Urine Blood Urine Nitrite Urine Bilirubin Urine Urobilinogen Ur Leukocyte Esterase Urine WBC (Auto) Urine RBC (Auto) U Hyaline Cast (Auto) U Epithel Cells (Auto) Urine Bacteria (Auto) Adenovirus (PCR) Anaplasma Smear A. phagocytophilum DNA B. pertussis DNA (PCR) B.parapertussis DNA PCR Lyme Disease IgG Ab Lyme Disease IgM Ab C. pneumoniae DNA (PCR) Coronavirus OC43 (PCR) Coronavirus HKU1 (PCR) Coronavirus 229E (PCR) COVID-19 Eval Order Covid19 Done at [facility] COVID-19 PCR NEGATIVE Coronavirus NL63 (PCR) Human Metapneumovir PCR Influenza Type A (PCR) Influ A Molecular Assay Negative Influenza Type B (PCR) Influ B Molecular Assay Negative M. pneumoniae (PCR) Parainfluenza 1 (PCR) Parainfluenza 2 (PCR) Parainfluenza 3 (PCR) Parainfluenza 4 (PCR) RSV (PCR) Entero/Rhino (PCR) 07/01/20 07/01/20 07/02/20 17:40 20:57 05:18 WBC 1.89 L RBC 4.77 Hgb 15.5 Hct 44.3 MCV 92.9 MCH 32.5 MCHC 35.0 RDW Std Deviation 44.1 RDW Coeff of Dee 13.0 Plt Count 153 MPV 9.7 Immature Gran % (Auto) 0.0 Neut % (Auto) 75.7 Lymph % (Auto) 20.6 [place] % (Auto) 3.2 Eos % (Auto) 0.0 Baso % (Auto) 0.5 Neut # (Auto) 1.43 Lymph # (Auto) 0.39 L [place] # (Auto) 0.06 L Eos # (Auto) 0.00 Baso # (Auto) 0.01 Immature Gran # (Auto) 0.00 PT INR APTT PTT Ratio Sodium Potassium Chloride Carbon Dioxide Anion Gap BUN Creatinine Est Cr Clr Drug Dosing Est GFR ( Amer) Est GFR (Non-Af Amer) BUN/Creatinine Ratio Glucose Lactate Calcium Magnesium Total Bilirubin AST ALT Alkaline Phosphatase Troponin I Total Protein Albumin Globulin Albumin/Globulin Ratio Procalcitonin Urine Color Yellow Urine Appearance Clear Urine pH 5.5 Ur Specific [place] 1.023 Urine Protein 1+ H Urine Glucose (UA) Negative Urine Ketones 2+ H Urine Blood Negative Urine Nitrite Negative Urine Bilirubin Negative Urine Urobilinogen Negative Ur Leukocyte Esterase Negative Urine WBC (Auto) 1-5 Urine RBC (Auto) 0-4 U Hyaline Cast (Auto) 1-5 U Epithel Cells (Auto) 0-5 Urine Bacteria (Auto) Negative Adenovirus (PCR) Not Detected Anaplasma Smear A. phagocytophilum DNA B. pertussis DNA (PCR) Not Detected B.parapertussis DNA PCR Not Detected Lyme Disease IgG Ab Lyme Disease IgM Ab C. pneumoniae DNA (PCR) Not Detected Coronavirus OC43 (PCR) Not Detected Coronavirus HKU1 (PCR) Not Detected Coronavirus 229E (PCR) Not Detected COVID-19 Eval Order COVID-19 PCR Not Detected Coronavirus NL63 (PCR) Not Detected Human Metapneumovir PCR Not Detected Influenza Type A (PCR) Not Detected Influ A Molecular Assay Influenza Type B (PCR) Not Detected Influ B Molecular Assay M. pneumoniae (PCR) Not Detected Parainfluenza 1 (PCR) Not Detected Parainfluenza 2 (PCR) Not Detected Parainfluenza 3 (PCR) Not Detected Parainfluenza 4 (PCR) Not Detected RSV (PCR) Not Detected Entero/Rhino (PCR) Not Detected 07/02/20 05:18 WBC RBC Hgb Hct MCV MCH MCHC RDW Std Deviation RDW Coeff of Dee Plt Count MPV Immature Gran % (Auto) Neut % (Auto) Lymph % (Auto) [place] % (Auto) Eos % (Auto) Baso % (Auto) Neut # (Auto) Lymph # (Auto) [place] # (Auto) Eos # (Auto) Baso # (Auto) Immature Gran # (Auto) PT INR APTT PTT Ratio Sodium 135 L Potassium 4.1 Chloride 106 Carbon Dioxide 23 Anion Gap 6.0 BUN 15 Creatinine 0.87 Est Cr Clr Drug Dosing 110.0 Est GFR ( Amer) 114.2 Est GFR (Non-Af Amer) 98.5 BUN/Creatinine Ratio 16.8 Glucose 138 H Lactate Calcium 8.5 Magnesium 2.1 Total Bilirubin AST ALT Alkaline Phosphatase Troponin I Total Protein Albumin Globulin Albumin/Globulin Ratio Procalcitonin Urine Color Urine Appearance Urine pH Ur Specific [place] Urine Protein Urine Glucose (UA) Urine Ketones Urine Blood Urine Nitrite Urine Bilirubin Urine Urobilinogen Ur Leukocyte Esterase Urine WBC (Auto) Urine RBC (Auto) U Hyaline Cast (Auto) U Epithel Cells (Auto) Urine Bacteria (Auto) Adenovirus (PCR) Anaplasma Smear A. phagocytophilum DNA B. pertussis DNA (PCR) B.parapertussis DNA PCR Lyme Disease IgG Ab Lyme Disease IgM Ab C. pneumoniae DNA (PCR) Coronavirus OC43 (PCR) Coronavirus HKU1 (PCR) Coronavirus 229E (PCR) COVID-19 Eval Order COVID-19 PCR Coronavirus NL63 (PCR) Human Metapneumovir PCR Influenza Type A (PCR) Influ A Molecular Assay Influenza Type B (PCR) Influ B Molecular Assay M. pneumoniae (PCR) Parainfluenza 1 (PCR) Parainfluenza 2 (PCR) Parainfluenza 3 (PCR) Parainfluenza 4 (PCR) RSV (PCR) Entero/Rhino (PCR) (1) Fever Fever type: unspecified Qualified Code(s): R50.9 - Fever, unspecified
--- NOTE | 2020-07-02 14:20 | Ultrasound Report ---
ULTRASOUND KIDNEYS AND BLADDER CLINICAL HISTORY: Urinary retention. COMPARISON STUDY: Abdominal radiograph dated 07/01/2020. TECHNIQUE: Real-time, grayscale, and color flow sonography of the kidneys and bladder is performed. I mages are reviewed in the transverse and longitudinal planes. FINDINGS: Kidneys: The kidneys are normal in size and echotexture. The right kidney measures 11.5 cm and the le ft kidney measures 11.4 cm. There is no hydronephrosis. No shadowing renal calculi are identified. T here are several right renal cyst which measure up to 2.5 cm. There is no sonographic evidence of con tour deforming renal mass lesion. No perinephric fluid is identified. Bladder: The bladder is decompressed around a Saul catheter and cannot be evaluated. IMPRESSION: 1. The kidneys are normal in size and without hydronephrosis. 2. The bladder was decompressed around a Saul catheter and could not be evaluated. ACT 112: Negative or not required by law. Electronically signed by: Rudy Clayton M.D. 07/02/2020 2:18 PM
--- NOTE | 2020-07-02 17:23 | Neurology Consultation ---
Date of Consultation July 02, 2020 Assessment & Plan (1) Acute urinary retention: 1. urology to follow- current iraheta catheter (2) Multiple sclerosis: 1. methlpredisone 1 g IV x 3 days then discharge with steroid taper 2. MRI brain/c/t/l spine pending 3. ocrevus as outpatient q 6 months 4. follow with Dr Reza as outpatient 5. continue to follow WBC - low Present on Admission?: Yes (3) Body aches: 1. tick bite - ok to use doxycycline 2. continue to follow WBC low Supervising Physician Co-Signing Physician Notes I have seen and discussed above patient with Dr Brenda Sheehan, neurology Pt seen and examined. 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 Unclear if pt ever had a "relapse"Last infusion? Mar/May. 10d ago ticks found on body. No rash. 4d ago fever, chills. Then noted increased urinary retention, increased weakness and spasticity of the LE. The pt had experienced these sx previously. No current headache.Pt received LES 10 d ago. No back pain Labs reviewed, WBC 1.87. Pt awake, alert, no sinus tenderness, neck supple. UE full, RLE 3+ LLE4 with increased tone and increased LE reflexes. mild dystaxia, gait wide based and myelopathic. No spinal level, intact sacral sensation. Impression:Hx of primary progressive MS Suspect pseudorelapse related to in fection. Agree with MRI imaging, L spine included to r/o Epidural process. Doubt given absence of pain. Agree with Iv solumedrol. Pt declines change in meds for spasticity at present. Agree with antibiotic tx given tick bites. 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 RE decreased WBC, was low nml on admission. Ocrevus can cause decreased WBC, but usually is transient. There is increased risk of certain infections and herpes virus. Consider hematology consultation/ID especially if pt remains febrile. BRANDON Sheehan MD History of Present Illness Reason for Consultation: MS flare Requesting Physician: Anjali Mulligan MD Attending Physician: Anjali Mulligan MD History of Present Illness Damián is a 54 year old male with PMH MS, spinal stenosis, ongoing flu like sympt oms x 3 days. body aches, chills, hot flashes, cold flashes nausea, headache for the past 2-3 days and a low grade fever. He also had some increase stiffness in his legs. He could not urinate so a iraheta catheter was placed. We was having some issue with ambulation. He has a history of primary progressive MS. About 1 week ago he had 2-3 tick bites on is back. [place] and has had tick bites in the past. he has decreased sensation in his LE but he thinks the weakness is worse in his right than his left. He was first treated by neurology in [place] with Ocrevus but has never had a + spinal fluid for olgioclonal bands. 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 He was started on Ocrelizumb in February of 2019 and then his insurance changed and he was switched to [employer] and was seen by telemedicine by Dr Reza who has continued the Ocrevus. He also takes tizanidine, meloxicam and gabapentin. His was given IV steroids 1 g. denies CP, SOB, abdominal pain, vision changes, pain in eyes, new bowel or bladder issues, N, V, current headache. 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 Preferred Language: [place] Communication Ability: Effective Investigator Internal Affairs Required: No Beliefs That Will Affect Care: None Current Living Situation: Alone Other Information That Helps Us Care for You: No Feels Safe at Home: Yes Safety Concerns: Feels Safe At This Time Assistive Devices: Walker Assistive Devices Comment: Cane actually a walking stick. Physical Exam Physical Exam: Physical Exam: Constitutional: appearance nourished, healthy and normal Ears, Nose, Mouth and Throat: mucous membranes moist, no injection and skin normal, eyes normal Cardiovascular: normal S-1 and S-2 and regular rate and rhythm Respiratory: clear to auscultation (CTA) and no rales, rhonchi or wheeze Musculoskeletal: no peripheral edema and good distal pulses Skin: no stigmata of neurocutaneous disease noted and normal and intact Eyes: extraocular muscles intact (EOMI) and pupils equal, round and reactive to light (PERRL) NEUROLOGIC EXAMINATION: Mental status: Alert and interactive Oriented to full date and location Oriented to person Speech fluent with no evidence of aphasia Cranial Nerves smile eye brow raise symmetric Reflexes: Deep tendon reflexes were symmetrical brisk throughout Sensory: decrease to light, vibration, light touch bilaterally to knees Coordination: finger to nose, rapid hand movement slowed on right Gait/Stance: Posture normal. Gait sensory gait walking with a walker Motor: Negative for pronator drift of out stretched arms with eyes closed. Strength: biceps triceps hand base filler 4+/5 RIGHT/left 5/5, hip flex left 4+/5, right 5/5 Results & Data ([facility]) Vital Signs (Past 12 Hours) Vital Signs Temp Pulse Resp BP Pulse Ox 07/02/20 16:58 36.7 C 95 H 16 146/89 H 97 07/02/20 07:15 36.6 C 74 18 153/88 H 97 Laboratory Results Abnormal lab results 07/01/20 07/02/20 07/02/20 Range/Units 17:40 05:18 05:18 WBC 1.89 L (4.8-10.8) K/uL Lymph # (Auto) 0.39 L (1.2-3.4) K/uL [place] # (Auto) 0.06 L (0.11-0.59) K/uL Sodium 135 L (136-145) mmol/L Glucose 138 H (70-99) mg/dl Urine Protein 1+ H (Negative) Urine Ketones 2+ H (Negative) Diagnostic Findings MRI c /t/l spine pending MRI brain pending
[2020-07-02] MEDS: tiZANidine HCL 4 MG TABLET PO SCH (20:15)
[2020-07-02] MEDS ORDERED: TAMSULOSIN HCL 0.4 MG CAP PO SCH (21:00)
[2020-07-02] MEDS ORDERED: LORazepam 0.5 MG/1 ML VIAL IV ONE (22:30)
[2020-07-03] MEDS ORDERED: GADOBUTROL 65ML VIAL IV ONE (02:09)
[2020-07-03] MEDS ORDERED: SODIUM CHLORIDE 0.65% NA SOLN 45 ML (OCEAN) PRN (04:13)
[2020-07-03 07:24] LABS: Hematocrit (blood only) 42.2 % (42-52); Hemoglobin 14.9 g/dL (14.0-18.0); Mean Corpuscular Hemoglobin 32.7 pg (25-34); Mean Corpuscular Hgb Conc 35.3 g/dL (32-36); Mean Corpuscular Volume 92.7 fL (80-100); Mean Platelet Volume 10.1 fL (7.4-10.4); Platelet Count 181 K/uL (130-400); RDW Coefficient of Variation 13.1 % (11.5-14.5); RDW Standard Deviation 44.1 fL (36.4-46.3); Red Blood Count 4.55 M/uL (4.7-6.1); White Blood Count 8.26 K/uL (4.8-10.8)
--- NOTE | 2020-07-03 07:38 | Magnetic Resonance Report ---
CERVICAL SPINE MRI WITH AND WITHOUT CONTRAST HISTORY: Stiffness in legs and upper body. Nausea. Loss of appetite. History of multiple sclerosis. TECHNIQUE: Multiplanar multisequence MRI of the cervical spine was performed both before and after th e use of intravenous contrast. COMPARISON STUDY: Cervical spine MRI 07/25/2019. FINDINGS: Straightening of the cervical spine. No fracture or subluxation. Prevertebral soft tissues and the C1-C2 interval are intact. 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 There is moderate disc space narrowing at C3-C4, C5-C6, and C6-C7. There again noted multiple sca ttered T2 hyperintense foci seen throughout the majority of the cervical spinal cord and upper thorac ic spinal cord. This is similar to the prior study. Dominant lesion at the C2-C3 level measures 1.4 c m in length. No abnormal enhancement to suggest active demyelination. C2-C3: No significant central canal or neural foraminal narrowing. C3-C4: Broad-based posterior disc osteophyte complex which abuts but does not deform the anterior cor d resulting in mild central canal and moderate to severe bilateral neural foraminal narrowing. C4-C5: No significant central canal narrowing. There is mild bilateral neural foraminal narrowing. C5-C6: Broad-based posterior disc bulge resulting in mild central canal and moderate to severe bilate ral neural foraminal narrowing. C6-C7: Small broad-based posterior disc bulge without significant central canal narrowing. There is m ild right and moderate left neural foraminal narrowing. C7-T1: No significant central canal or neural foraminal narrowing. IMPRESSION: 1. No significant change in the scattered T2 hyperintense foci within the cervical and upper thoracic spinal cord compared to the prior study. This is consistent with white matter plaques given the jordi ent's known history of multiple sclerosis. No abnormal enhancement to suggest active demyelination. 2. Degenerative changes as described above. This is also not significantly changed. ACT 112: Negative or not required by law. Electronically signed by: Mario Culp M.D. 07/03/2020 7:37 AM
[2020-07-03 07:56] LABS: BUN Creatinine Ratio 18.8 (10-20); Calcium 9.2 mg/dl (8.5-10.1); Creatinine Clr Calc Pharmacy 106.3 ml/min; Est GFR (African American) 112.6; Est GFR (Non-African American) 97.2; Potassium 4.1 mmol/L (3.5-5.1)
[2020-07-03] MEDS: GABAPENTIN 300 MG CAP PO SCH ×2 (08:04→14:25)
[2020-07-03] MEDS: methylPREDNISolone 1,000 MG in DEXTROSE 5% 250 ML IV SCH (08:04)
[2020-07-03] MEDS: DOXYCYCLINE HYCLATE 100 MG in DEXTROSE 5% 100 ML IV SCH (08:04)
--- NOTE | 2020-07-03 08:15 | Magnetic Resonance Report ---
MRI OF THE THORACIC SPINE WITH AND WITHOUT CONTRAST CLINICAL HISTORY: MS with known plaques COMPARISON: MRI of the thoracic spine September 17, 2018. TECHNIQUE: Utilizing a 1.5 [place] magnet and dedicated coil, multiplanar, multiecho imaging of the th oracic spine was performed before and after the intravenous administration of 7.8 cc. FINDINGS: Alignment of the thoracic spine is anatomic. Vertebral body heights are maintained. There i s no marrow edema or marrow replacement. Multiple Schmorl's nodes are noted. Paravertebral soft tissu es are unremarkable. Several T2 hyperintense nonenhancing lesions within the right kidney are noted. The right kidney is partially imaged. These visualized lesions favor cysts. There is no intracanalicu lar mass or fluid collection. There is no abnormal thoracic cord enhancement. Multiple T2 hyperintens e foci within the thoracic cord are noted. These are most evident at the T1, T3 and T8 levels. These are similar to MRI of September 09, 2018. There is also cord volume loss and increased cord signal at t he T10-T11 level which is likely due to posterior disc osteophyte complex that indents the cord. This is unchanged since previous MRI. No new foci of signal abnormality within the thoracic cord are note d. There is no evidence for active demyelination by MRI. Posterior disc osteophyte complex at T11-T12 contacts the ventral aspect of the cord. Otherwise, the central canal is patent. The neural foramen are patent. IMPRESSION: 1. No significant change in multiple T2 hyperintense foci within the thoracic cord since MRI of 2018. These suggest sites of demyelination. No new plaques identified. No evidence for active demyelination by MRI within the thoracic spine. 2. Posterior disc osteophyte complex at T10-T11 which indents the ventral aspect of the cord and resu lts in mild increased cord signal and volume loss which is unchanged since previous MRI. This favors myelomalacia which is chronic. ACT 112: Negative or not required by law. Electronically signed by: Bryce Sancehz M.D. 07/03/2020 8:13 AM
--- NOTE | 2020-07-03 08:44 | Magnetic Resonance Report ---
MR lumbar spine wo/w con CLINICAL HISTORY: 54 years-old Male with recent epidural shots. lower ext weakness. Patient presents with acute lower extremity weakness with history of Lyme disease. COMPARISON: MRI cervical and thoracic spine studies of same day, MRI lumbar spine 06/06/2019, MRI thor acic spine 09/17/2017. TECHNIQUE: Multiplanar, multi sequence MRI of the lumbar spine was performed both with and without th e use of 7.8 mL Gadavist. FINDINGS: Inventory Worker localizer images demonstrate no gross extraspinal abnormality. Motion degraded exam. No aortic aneurysm or paraspinal edema. Mild endplate edema is noted at T11-T12, L1-L2 and L2-L3, likely second blanca to Modic Type I endplate degeneration. No acute fracture or subluxation. There is unchanged Grade 1 retrolisthesis L1 on L2, L2 on L3 and L3 on L4 with Grade 1 anterolisthesis L4 on L5, likely secon jose angel to long-standing facet arthrosis. There is no abnormal enhancement. T2 hyperintense plaque invol ves the central spinal cord at T10-T11. Conus medullaris terminates at T12-L1. T11-T12: Mild to moderate intervertebral disc space narrowing with spondylitic spurring, posterior a nnular disc bulge and mild to moderate facet arthrosis. Mild central canal stenosis. T12-L1: Mild facet arthrosis. No central canal or foraminal narrowing. Unchanged. L1-L2: Mild to moderate intervertebral disc space narrowing with spondylitic spurring, small posteri or disc osteophyte complex and mild to moderate facet arthrosis. Flattening of the ventral thecal sac with mild central canal stenosis. Mild bilateral foraminal narrowing. Unchanged. L2-L3: Moderate intervertebral disc space narrowing with Grade 1 retrolisthesis. Circumferential magda ular disc bulge with spondylitic spurring, posterior disc osteophyte complex, ligamentum thickening a nd moderate facet arthrosis. AP dimension of the thecal sac measures 7 mm. Moderate central canal mague nosis with at least moderate narrowing of the lateral recesses. Mild right with moderate left foramin al narrowing is unchanged. L3-L4: Moderate intervertebral disc space narrowing with grade 1 retrolisthesis. Posterior disc bulg e with spondylitic spurring and posterior disc osteophyte complex. Ligamentum flavum thickening with moderate facet arthrosis. AP dimension of the thecal sac measures 7 mm. Moderate central canal stenos is with at least moderate narrowing of the lateral recesses. Severe left with moderate right foramina l narrowing. The degree of foraminal narrowing appears to have slightly progressed. L4-L5: Grade 1 anterolisthesis. Mild intervertebral disc space narrowing. Spondylitic spurring with small posterior annular disc bulge. Ligamentum flavum thickening with severe facet arthrosis. Flatten ing of the ventral thecal sac without significant central canal stenosis. Mild bilateral foraminal na rrowing. L5-S1: Mild posterior intervertebral disc space narrowing with spondylitic spurring and small director [place] [employer] ior annular disc bulge. Ligamentum flavum thickening with moderate facet arthrosis and trace facet ef fusions. Central canal and neural foramina appear patent. IMPRESSION: 1. T2 hyperintense plaque of the distal thoracic spinal cord redemonstrated. Please refer to MRI thor acic spine study of same day for additional details. 2. No abnormal enhancement identified. 3. Multilevel discogenic degeneration with ligamentum flavum thickening and facet arthrosis as detail ed above resulting in multilevel central canal and foraminal narrowing. ACT 112: Positive. There are findings on this exam that require communication between the performing entity and the patient following Patient Test Result Information Act ([place] Act 112) guidelines. The above report was generated using voice recognition software. It may contain grammatical, syntax o r spelling errors. Dictated: 07/03/2020 7:40 AM Transcribed: 07/03/2020 8:11 AM Zhanna [id number] ROSANNA_Francine Electronically signed by: Flaquito Brock M.D. 07/03/2020 8:43 AM
--- NOTE | 2020-07-03 08:45 | Magnetic Resonance Report ---
MR brain wo/w con HISTORY: 54 years-old Male ms flare follow-up study in a patient with demyelinating disease. COMPARISON: MRI cervical spine study of same day, brain MRI 01/05/2020. TECHNIQUE: Multiplanar and multisequence MRI of the brain was obtained both with and without the use of 7.8 mL Gadavist. FINDINGS: Tail Board Worker localizer images demonstrate no gross extracranial abnormality. No restricted diffusion to sugg est acute or subacute infarct. The midline structures including the corpus callosum, brainstem, optic chiasm, pituitary and pineal glands appear unremarkable on the sagittal T1 series. No cerebellar ton sillar herniation. Mild degenerative changes are noted involving the imaged cervical spine. No acute intracranial hemorrhage, midline shift, abnormal extra-axial collection, hydrocephalus or in tracranial mass. No pathologic blooming artifact on the T2 star series. Cerebral venous sinuses and m ajor arterial flow voids at the level of the skull base appear patent. Trace left mastoid effusion. M ild mucosal thickening of the paranasal sinuses. The soft tissues, skull and orbits appear unremarkab le. No abnormal intra-axial or extra-axial enhancement. Confluent increased FLAIR signal within the periv entricular white matter of the bilateral cerebral hemispheres is redemonstrated. Additionally, a few scattered punctate foci of increased T2/FLAIR signal within the subcortical and periventricular distr ibutions of the white matter are also again noted, some of which appears slightly more discrete on to day's exam. No new lesions identified. Mildly increased FLAIR signal within the dorsal caden and bilat eral middle cerebellar peduncles is also unchanged. Mildly increased T2/FLAIR signal of the cervical spinal cord is partially imaged. IMPRESSION: 1. Mild T2/FLAIR hyperintensities within the periventricular and to a lesser extent subcortical white matter of the bilateral cerebral hemispheres and also within the dorsal caden and bilateral middle ce rebellar peduncles redemonstrated suggestive of demyelinating disease. A few of the punctate subcorti wilda foci appear slightly more discrete on today's study. No new lesions are identified. 2. Partially imaged plaques of the upper cervical spinal cord. Please refer to the MRI cervical spine study of same day for additional findings. 3. No abnormal enhancement to suggest active demyelination. ACT 112: Positive. There are findings on this exam that require communication between the performing entity and the patient following Patient Test Result Information Act ([place] Act 112) guidelines. The above report was generated using voice recognition software. It may contain grammatical, syntax o r spelling errors. Dictated: 07/03/2020 7:58 AM Transcribed: 07/03/2020 8:15 AM Zhanna [id number] ROSANNA_Francine Electronically signed by: Flaquito Brock M.D. 07/03/2020 8:44 AM
--- NOTE | 2020-07-03 12:26 | Discharge Summary ---
Date of Service July 03, 2020 Admission HPI Per Admitting Provider 54-year-old male with past medical history significant for atrophic dermatitis, history of primary progressive multiple sclerosis, spinal stenosis of lumbar region, presents with ongoing flu-like symptoms for the last 3 days. The patient says he was feeling body aches, chills and hot flashes and cold flashes, some nausea, some headache for last 2-3 days and has low-grade fever, last night, he noticed that he has stiffness in his legs and have some difficulty ambulation and also difficulty micturating, he could not micturate at all today for which he came to the ER. In the ER, Iraheta catheter was placed, 600 mL of urine was drained. Patient also says about 1 week ago, he had a 2-3 tick bites in his back, which he took it off. He thinks they were there for 1 or 2 days. He lives in the [facility] and he says he had tick bites in the past. Currently he has temperature 38.5. In the ER, WBC was 4.7. Rest of labs are okay. Urine was negative. Lyme screen was negative. Anaplasma smear was negative. Influenza A and B was negative and COVID-19 PCR was negative in the ER, currently [employer] is ordered, which is pending. The patient says he is not exposed to any COVID patient and not exposed to any people, he lives alone at home. He has mild dizziness, no blurred vision, no double vision, no earache, no runny nose, no sore throat, no dysphagia, no loss of sense of smell or taste. No cough, no chest pain, no shortness of breath. Slightly nauseous. No abdominal pain, no vomiting, somewhat constipated, has some difficulty micturating since last night. No swelling in the legs, no rash. He says somewhat decreased sensation in lower extremities. He follows with [facility] and as per the [facility] notes in his 20s he was paralyzed in whole right side of the body. Thought it could be from the Lyme disease and after treating with antibiotics, his symptoms improved and MRI of the brain at that time was nonspecific and LP was negative and in his 30s again had recurrent episode slightly worse, right leg and right arm did not move, which lasted for several months, attributed to C-spine lesion, had fusion by neurosurgery and was doing well after surgery. In 2017 again he had trouble lifting the leg and walking, had some back issues as well. At that time epidural injection has helped somewhat but was also considered to be from his back issues or lyme disease. Again evaluated in 2018 at [facility], finally after several workups, it was thought to be high suspicion for PPMS, and was started on ocrelizumab in February 2019. The patient says last dose of his IV ocrelizumab for his MS was given 1 month ago. He recently about a week ago, he also had epidural shot for his chronic back pains and that seemed to help, but again the symptoms of stiffness started last night after having this illness. Currently resting comfortably and hemodynamically stable. Admission Exam Per Admitting Provider GENERAL: The patient is of moderate build, not in acute distress. VITAL SIGNS: Temperature 38.5, pulse 64, respiratory rate 14, blood pressure 135/90, oxygen 98% on room air. HEENT: No pallor, no icterus. Pupils equal. NECK: No JVD, no neck masses. CARDIOVASCULAR: S1, S2 heard, regular rate and rhythm, no murmur, no gallop. RESPIRATORY SYSTEM: Normal AP diameter. No accessory muscle use. No wheezing, no crackles. ABDOMEN: Soft, bowel sounds present, nontender. No distention. CENTRAL NERVOUS SYSTEM: Cranial nerves II-XII grossly intact. No facial droop seen. Speech clear. Power is about 3/5 in the right lower extremity and 5/5 in all other extremities and somewhat decreased sensation in lower extremities and position sense somewhat declined in the right foot region. EXTREMITIES: No edema, no erythema. Principal Diagnosis Tick bite Urinary Retention Multiple sclerosis Discharge Exam Constitutional + well hydrated; no acute distress Eyes PERRL, conjunctivae normal, anicteric sclerae ENMT external ear and nose normal, oropharynx normal Respiratory normal respiratory effort, lungs clear to auscultation Cardiovascular RRR, no murmur, no edema Gastrointestinal (Abdomen) normal bowel sounds, soft, nontender, no hepatosplenomegaly Musculoskeletal Power is 4/5 in RLE (mildly improved from yesterday) and 5/5 in LLE Power is 5/5 in UE Neurologic PERRL, EOMI, accommodation nl, no face palsy, no dysarthria Genitourinary Iraheta in situ Discharge Data Allergies Allergy/AdvReac Type Severity Reaction Status Date / Time No Known Allergies Allergy Unverified 06/17/19 09:35 Consultations 07/01/20 18:24 ED Decision to Admit Stat 07/01/20 21:42 Consult Case Management - Discharge Planning Routine 07/02/20 08:00 Consult Neurology Routine Consult Urology Routine Ordered Studies 07/02/20 09:27 MR brain wo/w con Urgent [employer] localizer images demonstrate no gross extracranial abnormality. No restricted diffusion to suggest acute or subacute infarct. The midline str uctures including the corpus callosum, brainstem, optic chiasm, pituitary and pineal glands appear unremarkable on the sagittal T1 series. No cerebellar tonsillar herniation. Mild degenerative changes are noted involving the imaged cervical spine. No acute intracranial hemorrhage, midline shift, abnormal extra-axial collection, hydrocephalus or intracranial mass. No pathologic blooming artifact on the T2 star series. Cerebral venous sinuses and major arterial flow voids at the level of the skull base appear patent. Trace left mastoid effusion. Mild mucosal thickening of the paranasal sinuses. The soft tissues, skull and orbits appear unremarkable. No abnormal intra-axial or extra-axial enhancement. Confluent increased FLAIR signal within the periventricular white matter of the bilateral cerebral hemispheres is redemonstrated. Additionally, a few scattered punctate foci of increased T2/FLAIR signal within the subcortical and periventricular distributions of the white matter are also again noted, some of which appears slightly more discrete on today's exam. No new lesions identified. Mildly increased FLAIR signal within the dorsal caden and bilateral middle cerebellar peduncles is also unchanged. Mildly increased T2/FLAIR signal of the cervical spinal cord is partially imaged. IMPRESSION: 1. Mild T2/FLAIR hyperintensities within the periventricular and to a lesser extent subcortical white matter of the bilateral cerebral hemispheres and also within the dorsal caden and bilateral middle cerebellar peduncles redemonstrated suggestive of demyelinating disease. A few of the punctate subcortical foci appear slightly more discrete on today's study. No new lesions are identified. 2. Partially imaged plaques of the upper cervical spinal cord. Please refer to the MRI cervical spine study of same day for additional findings. 3. No abnormal enhancement to suggest active demyelination. 07/02/20 09:28 MR cervical spine wo/w con Urgent Straightening of the cervical spine. No fracture or subluxation. Prevertebral soft tissues and the C1-C2 interval are intact. Fusion at the C4-C5 levels which appears to be on a congenital basis. There is moderate disc space narrowing at C3-C4, C5-C6, and C6-C7. There again noted multiple scattered T2 hyperintense foci seen throughout the majority of the cervical spinal cord and upper thoracic spinal cord. This is similar to the prior study. Dominant lesion at the C2-C3 level measures 1.4 cm in length. No abnormal enhancement to suggest active demyelination. C2-C3: No significant central canal or neural foraminal narrowing. C3-C4: Broad-based posterior disc osteophyte complex which abuts but does not deform the anterior cord resulting in mild central canal and moderate to severe bilateral neural foraminal narrowing. C4-C5: No significant central canal narrowing. There is mild bilateral neural foraminal narrowing. C5-C6: Broad-based posterior disc bulge resulting in mild central canal and moderate to severe bilateral neural foraminal narrowing. C6-C7: Small broad-based posterior disc bulge without significant central canal narrowing. There is mild right and moderate left neural foraminal narrowing. C7-T1: No significant central canal or neural foraminal narrowing. IMPRESSION: 1. No significant change in the scattered T2 hyperintense foci within the cervical and upper thoracic spinal cord compared to the prior study. This is consistent with white matter plaques given the patient's known history of multiple sclerosis. No abnormal enhancement to suggest active demyelination. 2. Degenerative changes as described above. This is also not significantly changed. MR lumbar spine wo/w con Urgent FINDINGS: Le[employer] Consult[employer] localizer images demonstrate no gross extraspinal abnormality. Motion degraded exam. No aortic aneurysm or paraspinal edema. Mild endplate edema is noted at T11-T12, L1-L2 and L2-L3, likely secondary to Modic Type I endplate degeneration. No acute fracture or subluxation. There is unchanged Grade 1 retrolisthesis L1 on L2, L2 on L3 and L3 on L4 with Grade 1 anterolisthesis L4 on L5, likely secondary to long-standing facet arthrosis. There is no abnormal enhancement. T2 hyperintense plaque involves the central spinal cord at T10-T11. Conus medullaris terminates at T12-L1. T11-T12: Mild to moderate intervertebral disc space narrowing with spondylitic spurring, posterior annular disc bulge and mild to moderate facet arthrosis. Mild central canal stenosis. T12-L1: Mild facet arthrosis. No central canal or foraminal narrowing. Unchanged. L1-L2: Mild to moderate intervertebral disc space narrowing with spondylitic spurring, small posterior disc osteophyte complex and mild to moderate facet arthrosis. Flattening of the ventral thecal sac with mild central canal stenosis. Mild bilateral foraminal narrowing. Unchanged. L2-L3: Moderate intervertebral disc space narrowing with Grade 1 retrolisthesis. Circumferential annular disc bulge with spondylitic spurring, posterior disc osteophyte complex, ligamentum thickening and moderate facet arthrosis. AP dimension of the thecal sac measures 7 mm. Moderate central canal stenosis with at least moderate narrowing of the lateral recesses. Mild right with moderate left foraminal narrowing is unchanged. L3-L4: Moderate intervertebral disc space narrowing with grade 1 retrolisthesis. Posterior disc bulge with spondylitic spurring and posterior disc osteophyte complex. Ligamentum flavum thickening with moderate facet arthrosis. AP dimension of the thecal sac measures 7 mm. Moderate central canal stenosis with at least moderate narrowing of the lateral recesses. Severe left with moderate right foraminal narrowing. The degree of foraminal narrowing appears to have slightly progressed. L4-L5: Grade 1 anterolisthesis. Mild intervertebral disc space narrowing. Spondylitic spurring with small posterior annular disc bulge. Ligamentum flavum thickening with severe facet arthrosis. Flattening of the ventral thecal sac without significant central canal stenosis. Mild bilateral foraminal narrowing. L5-S1: Mild posterior intervertebral disc space narrowing with spondylitic spu rring and small posterior annular disc bulge. Ligamentum flavum thickening with moderate facet arthrosis and trace facet effusions. Central canal and neural foramina appear patent. IMPRESSION: 1. T2 hyperintense plaque of the distal thoracic spinal cord redemonstrated. Please refer to MRI thoracic spine study of same day for additional details. 2. No abnormal enhancement identified. 3. Multilevel discogenic degeneration with ligamentum flavum thickening and facet arthrosis as detailed above resulting in multilevel central canal and foraminal narrowing. 07/02/20 13:30 US renal/blad retro comp Routine Kidneys: The kidneys are normal in size and echotexture. The right kidney measures 11.5 cm and the left kidney measures 11.4 cm. There is no hydronephrosis. No shadowing renal calculi are identified. There are several right renal cyst which measure up to 2.5 cm. There is no sonographic evidence of contour deforming renal mass lesion. No perinephric fluid is identified. Bladder: The bladder is decompressed around a Iraheta catheter and cannot be evaluated. IMPRESSION: 1. The kidneys are normal in size and without hydronephrosis. 2. The bladder was decompressed around a Iraheta catheter and could not be evaluated. 07/02/20 16:29 MR thoracic spine wo/w con Routine Alignment of the thoracic spine is anatomic. Vertebral body heights are maintained. There is no marrow edema or marrow replacement. Multiple Schmorl's nodes are noted. Paravertebral soft tissues are unremarkable. Several T2 hyperintense nonenhancing lesions within the right kidney are noted. The right kidney is partially imaged. These visualized lesions favor cysts. There is no intracanalicular mass or fluid collection. There is no abnormal thoracic cord enhancement. Multiple T2 hyperintense foci within the thoracic cord are noted. These are most evident at the T1, T3 and T8 levels. These are similar to MRI of September 09, 2018. There is also cord volume loss and increased cord signal at the T10-T11 level which is likely due to posterior disc osteophyte complex that indents the cord. This is unchanged since previous MRI. No new foci of signal abnormality within the thoracic cord are noted. There is no evidence for active demyelination by MRI. Posterior disc osteophyte complex at T11-T12 contacts the ventral aspect of the cord. Otherwise, the central canal is patent. The neural foramen are patent. IMPRESSION: 1. No significant change in multiple T2 hyperintense foci within the thoracic cord since MRI of September 17, 2018. These suggest sites of demyelination. No new plaques identified. No evidence for active demyelination by MRI within the thoracic spine. 2. Posterior disc osteophyte complex at T10-T11 which indents the ventral aspect of the cord and results in mild increased cord signal and volume loss which is unchanged since previous MRI. This favors myelomalacia which is chronic. Hospital Course (1) Fever: (2) Body aches: Fever and body aches Temp of 38.5 on admission. Resolved Report of tick bites Most of tick borne illness labs that have resulted so far are negative Discharge on po doxycycline to complete 10 day therapy (3) Multiple sclerosis: MRI brain/cervical/thoracic/lumbar done No new remarkable findings compared to old Discussed with neurologist Patient received iv solumedrol while inpatient Discharged on steroid taper - Prednisone 80mg daily x2 days, 60mg daily x4days, 40mg daily x 4 days, 20mg daily x4 days, 10mg daily x 4 days then stop Patient to follow up with his neurologist (4) Acute urinary retention: Evaluated by urology Urology recommends discharge with iraheta and to follow up in office in 7-10 days for reeval and voiding trial Discharged on flomax Iraheta education Total Time Total Time Spent Total Time Spent (In Minutes): 40 Total Time Includes: Examination of the Patient, Discharge Planning, Medication Reconciliation and Communication With Other Providers Discharge Plan Discharge Items Patient Disposition: Home - Self-Care Reason For Visit: FEVER,LEG STIFFNESS Discharge Diagnosis: Tick bite Urinary retention Multiple sclerosis Condition on Discharge: Fair Goals: Use rolling walker with transfer and ambulation Activity: As commented below Activity Comment: As instructed by occupational therapist. Non-emergency contact: Primary Care Provider, Neurologist and Urologist Call non-emergency contact if: you have any medication questions and your symptoms worsen Follow-up/Referrals: Deepak Vargas MD [Primary Care Provider] - (Date & Time 07/06/2020 2:40 PM Provider Deepak Vargas MD Department Family [facility] ) Diet: Heart Healthy Addtl Attending Provider Instructions: Mr Posey. You came to the hospital complaining of fever, left leg weakness and recent tick bites. You were evaluated. You also had urinary retention. You were started on doxycycline for possible tick borne infections. Preliminary tick borne illness labs are negative but still have one pending. You are being discharged on doxycycline to complete treatment You are also being discharged on prednisone taper (80mg for 2 days, 60mg for 4 days, 40mg for 4 days, 20mg for 4 days, 10mg for 4 days, then stop) For your urinary retention, you were evaluated by urologist and being discharged on iraheta catheter. Please follow up with urology office in 7-10 days for further evaluation Continue to follow up with your neurologist. It was a pleasure taking care of you. Pending Studies at Discharge: Yes Studies:: A. phagocytophilum DNA Stand-Alone Forms: My [employer], Smoking Cessation Medications and DC Order Prescriptions: New tamsulosin 0.4 mg Capsule 0.4 mg PO HS 30 Days Qty: 30 RF: 0 doxycycline hyclate 100 mg tablet,delayed release (DR/EC) 100 mg PO BID 9 Days Qty: 18 RF: 0 prednisone 20 mg tablet See Rx Instructions .ROUTE .COMPLEX Qty: 34 RF: 0 Continued gabapentin 300 mg capsule 300 mg PO TID Qty: 30 RF: 0 tizanidine 2 mg tablet 2 mg PO QPM RF: 0 meloxicam 15 mg tablet 15 mg PO DAILY RF: 0 Discharge Orders: Discharge Order (Routine); Ordered 07/03/20 Ordered By: Anjali Wan/Other Patient Handouts: Emptying and Cleaning Your ..., Indwelling Urinary Catheter Dc, Discharge Instructions Caring for ... Admission Data Admit Date/Time: 07/01/20 20:45 Attending Provider: Anjali Mulligan I. Admit Provider: Gene Medina Primary Care Provider: eDepak Vargas Other Providers: Blu Freeman ; Brenda Sheehan ; Chaka Ghosh ; Damián Garcia ; Shankar Norman I. ; Joe Rojas ; Lizeth Hills ; Sue Cavazos ; Armen Sharma ; Jamia David ; Minnie Wahsburn ; Deepthi Viera ; Maximiliano Hilario ; Lisbeth Villegas ; Gricel Grijalva Other Interventions: Discharge Summary Assessment (RN) Last Done: 07/03/20 12:42
== END 2020-07-03 15:02 | disposition home or self-care (01) ==
LOC: ED 13:31 → INTOOBSV 20:45 → 3N 20:45